=== PATIENT | female | born 1995 | race African-American/Black ===

== ENCOUNTER 2017-03-14 13:57 | Emergency (ER) | payer MEDICAID, MEDICARE ==
[~2017-03-14] VITALS: Ht 170.2 cm; Wt 65.0 kg
[2017-03-14 14:02] VITALS: BP 143/73
== END 2017-03-14 18:22 | disposition left against medical advice (07) ==
LOC: ER 15:38
DX: Z04.3 Encounter for examination and observation following other accident (principal); Z53.21 Procedure and treatment not carried out due to patient leaving prior to being seen by health care provider

== ENCOUNTER 2017-07-15 12:16 | Observation (INO) | payer MEDICARE ==
[~2017-07-15] VITALS: Ht 160 cm; Wt 68.9 kg
[2017-07-15] MEDS ORDERED: PNV1TABL76 PO (12:27)
[2017-07-15] MEDS ORDERED: LACTATED RINGERS 1,000 ML IV SCH (12:45)
[2017-07-15 13:21] LABS: CLARITY URINE CLOUDY (CLEAR); COLOR URINE YELLOW (YELLOW); KETONES URINE NEGATIVE (NEGATIVE); LEUKOCYTE ESTERASE URINE NEGATIVE (NEGATIVE); NITRITE URINE NEGATIVE (NEGATIVE); OCCULT BLOOD URINE NEGATIVE (NEGATIVE); PROTEIN URINE NEGATIVE (NEGATIVE); SPECIFIC GRAVITY URINE 1.017 (1.005-1.030); UROBILINOGEN URINE 0.2 E.U./dL (0.2-1.0)
[2017-07-15] MEDS ORDERED: ACETAMINOPHEN 500MG TABLET PO ONE (14:00)
== END 2017-07-15 14:50 | disposition home or self-care (01) ==
LOC: L&D 12:16
PROVIDERS: ADMIT Specialist; ATTEND Specialist
DX: O26.892 Other specified pregnancy related conditions, second trimester (principal); R10.2 Pelvic and perineal pain; M54.5 Low back pain; Z3A.32 32 weeks gestation of pregnancy
CPT/HCPCS: 81003; 99281; G0378; J7120; 96360; 96361

== ENCOUNTER 2022-12-16 13:11 | Emergency (ER) | payer MEDICAID, MEDICARE ==
[~2022-12-16] VITALS: Ht 170.2 cm; Wt 86.0 kg
[~2022-12-16 13:11] MED LIST: PNV1TABL76 PO
[2022-12-16] MEDS ORDERED: ONDANSETRON 4MG ODT PO STA (13:16)
[2022-12-16] MEDS ORDERED: MAGNESIUM/ALUMINUM HYDROXIDE/SIMETHICONE 30ML UDC PO STA (13:16)
[2022-12-16 13:19] VITALS: BP 120/83; PULSE 94; RESP 18; TEMP 98.4; O2SAT 99
== END 2022-12-16 14:23 | disposition left against medical advice (07) ==
LOC: ER 13:11
DX: R10.9 Unspecified abdominal pain (principal)
CPT/HCPCS: 99283